=== PATIENT | male | born 1970 | race Caucasian/White ===

== ENCOUNTER 2017-04-09 00:03 | Emergency (ER) | payer OTHER ==
[~2017-04-09] VITALS: Ht 170.2 cm; Wt 75.0 kg
[2017-04-09 00:06] VITALS: BP 211/97; PULSE 105; RESP 16; TEMP 98.8; O2SAT 98
[2017-04-09 00:34] VITALS: BP 169/78; PULSE 102; RESP 16; O2SAT 100
--- NOTE | 2017-04-09 00:34 | PD ---
HPI Chief Complaint: Cold / Flu Symptoms Time Seen by Provider: 00:32 Travel History International Travel<30 days: No Contact w/Intl Traveler<30days: No Traveled to known affect area: No History of Present Illness HPI 46-year-old white male presents to emergency Department with complaints of sinus congestion, runny nose, cough and green nasal discharge. He states that he moved from [facility] approximately 1-2 months ago. He has been out of his respiratory meds, blood pressure medications as well as his medicines for diabetes. He denies any fever or chills. He does admit to a sinus headache. No sore throat, no shortness of breath or sputum production. No nausea vomiting. No abdominal pain or diarrhea. No dysuria frequency. Symptoms are moderate. He has not taking any medications so far to assist with the symptoms. [facility] Past Medical History Narrative Medical Diabetes, hypertension, COPD Tetanus Vaccination: < 5 Years Past Surgical History Surgical History: No Previous Surgery Social History Alcohol Use: Yes Tobacco Use: No Allergies-Medications (Allergen,Severity, Reaction): Coded Allergies: No Known Allergies (Unverified , 04/09/17) Review of Systems Except as stated in HPI: all other systems reviewed are Neg Physical Exam Narrative GENERAL: Well-developed, well-nourished in no acute distress. Nontoxic appearing. HEAD: Normocephalic, atraumatic. EYES: Pupils equal round and reactive. Extraocular motions intact. No scleral icterus. No injection or drainage. ENT: TMs clear without erythema. The external auditory canals clear. Nose: clear . Posterior pharynx is pink and moist. No tonsillar edema or exudate. Uvula midline. Airway patent. NECK: Trachea midline.Supple, nontender, moves head freely. No central bony tenderness or spasm. CARDIOVASCULAR: Regular rate and rhythm without murmurs, gallops, or rubs. RESPIRATORY: Clear to auscultation. Breath sounds equal bilaterally. No wheezes , rales, or rhonchi. GASTROINTESTINAL: Abdomen soft, non-tender, nondistended. No hepato-splenomegaly , or palpable masses. No guarding. EXTREMITIES: No clubbing, cyanosis, or edema. No joint tenderness, effusion, or edema noted. BACK: Nontender without deformity or crepitance. No flank tenderness. Data Data Last Documented VS Vital Signs Date Time Temp Pulse Resp B/P Pulse Ox O2 Delivery O2 Flow Rate FiO2 04/09/17 00:34 102 16 169/78 100 Room Air 04/09/17 00:06 98.8 [facility] Medical Decision Making Medical Screen Exam Complete: Yes Emergency Medical Condition: Yes Medical Record Reviewed: Yes Differential Diagnosis MDM: High Differential diagnoses: Pneumonia, bronchitis, URI, asthma, RAD, COPD, allergic rhinitis Narrative Course Patient's vital signs have been reviewed. Blood pressure repeated. Diagnosis Primary Impression: URI (upper respiratory infection) Qualified Code: J06.9 - Viral upper respiratory tract infection Additional Impressions: COPD (chronic obstructive pulmonary disease) Qualified Code: J43.9 - Pulmonary emphysema, unspecified emphysema type Hypertension Qualified Code: I10 - Hypertension, unspecified type Patient Instructions: General Instructions Additional Instructions: Rest. Increase fluids. Avapro, prednisone, and albuterol. Checked her blood pressure daily. Followup with your Dr. in one week. Return to the ER for any problems. Med/Other Pt SpecificInfo: Prescription(s) given Scripts Prednisone (Deltasone)20 Mg Tab20 Mg PO BID #10 TAB Prov:Dee Amos DO 04/09/17 Albuterol 6.7 GM Inh (Proventil Hfa 6.7 GM Inh)90 Mcg/Act Aer2 Puff INH Q6H PRN (SHORTNESS OF BREATH) #1 INHALER Prov:Dee Amos DO 04/09/17 Irbesartan (Avapro)75 Mg Tab75 Mg PO DAILY #30 TAB Ref 0 Prov:Dee Amos DO 04/09/17 Disposition: 01 DISCHARGE HOME Condition: Stable Alexander Hernandez Apr 09, 2017 00:34
[2017-04-09] MEDS ORDERED: IRBE75TA24 PO (00:37)
[2017-04-09] MEDS ORDERED: PRED-503 PO (00:37)
[2017-04-09] MEDS ORDERED: ALBU6.7H INH (00:37)
== END 2017-04-09 01:15 | disposition home or self-care (01) ==
LOC: NEPD 00:03
DX: J06.9 Acute upper respiratory infection, unspecified (principal); J44.9 Chronic obstructive pulmonary disease, unspecified; I10 Essential (primary) hypertension; E11.9 Type 2 diabetes mellitus without complications
CPT/HCPCS: 99284